=== PATIENT | female | born 1965 | race American Indian/Alaskan Native ===

== ENCOUNTER 2017-03-26 15:39 | Outpatient (CLI) | payer OTHER ==
[2017-03-26] MEDS ORDERED: NACL ONE (16:02)
--- NOTE | 2017-03-26 16:51 | Cat Scan Report ---
CT HEAD WITH AND WITHOUT CONTRAST INDICATION: Headache, dizziness. Patient with myeloma. COMPARISON: None similar. FINDINGS: Head CT performed before and after IV contrast demonstrates normal ventricles and sulci without acute or recent infarct, hemorrhage, mass effect or midline shift. No abnormal extra-axial fluid collections. Posterior fossa structures and basilar cisterns appear within normal limits. No suspicious abnormal enhancement. Leftward nasal septal bowing. Left mid ethmoid air cell opacification. Clear remainder imaged paranasal sinuses and mastoid air cells. Intact calvarium. Normal overlying scalp soft tissues. Partially empty sella. Small radiopaque dental material and a missing mandibular tooth. CONCLUSION: No acute intracranial CT abnormality, as described. Thank you for the opportunity to participate in this patient's care.
== END 2017-03-26 15:40 | disposition home or self-care (01) ==
LOC: CT 15:39
DX: R51 Headache (principal); R42 Dizziness and giddiness; C90.00 Multiple myeloma not having achieved remission; J34.2 Deviated nasal septum; F17.200 Nicotine dependence, unspecified, uncomplicated
CPT/HCPCS: 70470